=== PATIENT | male | born 1950 | race Caucasian/White ===

== ENCOUNTER 2023-10-25 09:26 | Emergency (ER) | payer OTHER, SELFPAY ==
[2023-10-25 09:53] VITALS: BP 124/81; PULSE 74; RESP 16; TEMP 36.6; O2SAT 95; BMI 35.3
--- NOTE | 2023-10-25 10:47 | XRR_ITS ---
PROCEDURE INFORMATION: Exam: XR Left Knee Exam date and time: 10/25/2023 11:54 AM Age: 73 years old Clinical indication: Injury or trauma; Fall; Sprain or strain; Ankle; Left TECHNIQUE: Imaging protocol: Radiologic exam of the left knee. Views: 3 views. COMPARISON: CR XR ankle LT min 3V* [id number] 10/25/2023 11:52 AM FINDINGS: Bones/joints: There is an intact knee prosthesis. Articulating surfaces appear to be in normal alignment. [place] bone is normal. Soft tissues: Normal. XR/XR knee LT 3V* [id number] IMPRESSION: No acute findings.
--- NOTE | 2023-10-25 10:47 | XRR_ITS ---
PROCEDURE INFORMATION: Exam: XR Left Ankle Exam date and time: 10/25/2023 11:52 AM Age: 73 years old Clinical indication: Injury or trauma; Fall; Sprain or strain; Lower leg; Left; Prior surgery; Surgery date: 6+ months; Surgery type: Lt knee; Additional info: Fall/pain TECHNIQUE: Imaging protocol: Radiologic exam of the left ankle. Views: 3 or more views. COMPARISON: No relevant prior studies available. FINDINGS: Bones/joints: No fracture or other acute abnormality. Mild tibiotalar degenerative changes are seen. Soft tissues: There is soft tissue swelling or edema. XR/XR ankle LT min 3V* [id number] IMPRESSION: No acute findings. Soft tissue swelling.
--- NOTE | 2023-10-25 11:54 | W.ED.LOWEXIN ---
HPI - Extremity Injury (Lower) General: Chief Complaint: Extremity Injury, Lower Stated Complaint: Fell, hurt ankle, knee Time Seen by Provider: 10/25/23 09:40 Source: patient Mode of arrival: wheelchair Limitations: no limitations History of Present Illness: Patient is a nice 73-year-old male who presents to ED today along with his for evaluation of a left lower extremity injury. Patient states approximately 2 to 3 days ago he was walking down an incline when he slipped and fell. He states his left leg got caught underneath him . He initially was having some left knee pain but states this has significantly improved. His main complaint is pain, swelling, and bruising around the left ankle. states he has been ambulating with crutches. MD complaint: ankle injury Onset (ago): day(s) Injury: Left: ankle Place: home Severity: moderate Relieving factors: immobilization Exacerbating factors: weight bearing, movement and palpation Context: fall Associated symptoms: Reports inability to bear weight Other symptoms: none Review of Systems Musc: Reports: joint pain (L ankle) and joint swelling (L ankle); Denies: neck pain, back pain, extremity pain, extremity swelling or joint redness Neuro: Reports: difficulty walking (secondary to L ankle pain); Denies: numbness in extremities, weakness in extremities or sensory changes Physical Exam Const: COMMON NORMALS: no acute distress, patient oriented x3, no limitations, alert and well nourished GENERAL APPEARANCE: cooperative Back/Pelvis: COMMON NORMALS: thoracic and lumbar spine normal to inspection and no thoracic nor lumbar tenderness Extremity: COMMON NORMALS: no calf tenderness GENERAL: Yes normal exam except as noted RIGHT LOWER EXTREMITY: Yes knee joint (anterior surgical scar) Right knee: Yes inspection (normal gross inspection), Yes palpation (minimal bony tenderness present), Yes ROM (normal ROM) and Yes neurovascular exam (normal) and Yes foot & digits (significant swelling throughout ankle/foot) Right ankle: Yes inspection (edema and ecchymosis), Yes palpation (max tenderness centered over L lateral malleolus) and Yes neurovascular exam (normal) Neuro: COMMON NORMALS: patient oriented x3, moves all extremities, no focal motor deficits and no sensory deficits noted SENSORIUM/ORIENTATION: Yes alert Course Vital Signs: Vital signs: Vital Signs Temperature 98 F 10/25/23 09:53 Pulse Rate 74 10/25/23 09:53 Respiratory Rate 16 10/25/23 09:53 Blood Pressure 124/81 10/25/23 09:53 Pulse Oximetry 95 10/25/23 09:53 Oxygen Delivery Me thod Room Air 10/25/23 09:53 MDM - Extremity Injury (Lower) Medical Decision Making Patient's XR showing a distal fibular fracture. Patient will be placed in a posterior short leg splint. He has crutches to being on weightbearing. Will place a case management referral for orthopedics. He declines prescription for pain medications. Lab Data Radiology Impressions Ankle X-Ray 10/25/23 10:47 IMPRESSION: No acute findings. Soft tissue swelling. Knee X-Ray 10/25/23 10:47 IMPRESSION: No acute findings. XR interpretation done by ED provider, pending radiology final review Discharge Plan Discharge Patient Disposition: Home Clinical Impression: Closed fracture of distal end of left fibula Qualifiers: Encounter type: initial encounter Fracture morphology: other fracture Qualified Code(s): S82.832A - Other fracture of upper and lower end of left fibula, initial encounter for closed fracture Condition: Stable Discharge Orders: Discharge ED (Routine); Ordered 10/25/23 Ordered By: Arline Mccarty Referrals: Haroon Aguiar MD [Family Provider] - Jen Elias MD [Primary Care Provider] - Patient Instructions: Ankle Fracture (DC) Activity Restrictions/Additional Instructions: As we discussed you need to stay in your splint and continue using your crutches until told otherwise by orthopedics. Case management should reach out to you later this week to help set you up with your follow-up appointment. Coding Level of Care Code ED Child Development Instructor for Jose Guallpa
--- NOTE | 2023-10-25 12:39 | PC.NURSE ---
PATIENT STATES HE HAS CRUTCHES IN THE CAR FOR USE.
--- NOTE | 2023-10-26 09:53 | DCPLANNER ---
Message sent to Ortho for follow up on a distal fib fx
== END 2023-10-25 12:39 | disposition home or self-care (01) ==
PROVIDERS: Emergency Provider Physician Assistant; Family Provider Family Medicine; PCP Family Medicine
DX: S82.832A Other fracture of upper and lower end of left fibula, initial encounter for closed fracture (principal); W01.0XXA Fall on same level from slipping, tripping and stumbling without subsequent striking against object, initial encounter
CPT/HCPCS: 73562; 73610; 99283

== ENCOUNTER 2025-10-06 15:17 | Emergency (ER) | payer OTHER, SELFPAY ==
--- OUTSIDE RECORDS SUMMARY | 2025-10-06 15:24 | XMS_ITS | Encounter Summary ---
Author Organization [facility] Address [address] [place] [address] Care Team Providers Care Inspector Eyeglass Frames Name Role Phone Jen Elias MD Primary Care Provider Encounter Details Date Type Department Care Team (Late st Contact Info) Description 04/18/2008 Outpatient Historical [employer] [facility] [address] [place] [address] Hermelindo Samayoa MD [address] [place] [address] [address] [place] [address] Social History Tobacco Use Types Packs/Day Years Used Date Smoking Tobacco: Never Assessed Sex and Gender Information Value Date Recorded Sex Assigned at Not on file 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 Gender Identity Not on file Sexual Orientation Not on file documented as of this encounter Plan of Treatment Not on file documented as of this encounter Procedures Procedure Name Priority Date/Time Associated Diagnosis Comments PATHOLOGY Routine 04/18/2008 8:50 AM CDT documented in this encounter Results * PATHOLOGY (04/18/2008 8:50 AM CDT) PATHOLOGY/CYT OLOGY REPORT [facility] Dept [address] [facility] [address] Patient: FAITH VALENCIA Accn No: [id number] Collected: 04/18/2008 8:50:00 AM DERMATOPATHOLOGY FINAL REPORT Diagnosis BASAL CELL CARCINOMA, SUPERFICIAL PATTERN (173.3) (LEFT NOSE) Luisito Olivas MD (Electronically signed by) Verified: 04/23/08 RP /WLS Clinical Information Lesion. Specimen Source LEFT NOSE Gross Description Received in formalin is a white fragment of skin measuring 0.4 x 0.4 x 0.1 cm with a brown possible ulcer measuring 0.2 x 0.1 cm. The specimen is bisected and submitted in cassette A1. *Gross examination performed at [facility], [address] [place] [address] DI RP /WLS Microscopic Description Sections show aggregates of atypical, peripherally palisaded basaloid cells near the junctional zone. There are infiltrates of lymphocytes present. The basal cell carcinoma is seen extending to the lateral biopsy margins. INTERFACE SYSTEM 04/18/2008 8:50 AM CDT Hermelindo Samayoa MD PATHOLOGY/CYTOLOGY ARABELLA PEREZ Final Result INTERFACE SYSTEM Refer to clinic/hospital department documented in this encounter Visit Diagnoses Not on filedocumented in this encounter Care Teams Inspector Eyeglass Frames Relationship Specialty Start Date End Date Jen Elias MD [address] [place] [address] PCP - General Family Practice 08/13/20 documented as of this encounter
--- OUTSIDE RECORDS SUMMARY | 2025-10-06 15:24 | XMS_ITS | Clinical Summary ---
Author Organization [facility] Address [address] [place] [address] Care Team Providers Care Engineering Technology Instructor Name Role Phone Jen Elias MD Primary Care Provider Allergies No known active allergies Medications atorvastatin (LIPITOR) 40 mg tablet Take 40 mg by mouth daily. 01/01/2020 Active cetirizine (ZyrTEC) 10 mg tablet Take 10 mg by mouth daily. Active polyethylene glycol 3350 (Miralax) 17 gram/dose Powder Take 1 SCOOP (17 Grams) by mouth daily. Dissolve in 8 ounces of fluid and drink entire liquid 510 Gram 08/14/2020 2:40 PM CDT 08/13/2020 Active walker Length of Need: 99 months Type of walker:walker with wheels 1 Each 08/13/2020 Active Active Problems Problem Noted Date Diagnosed Date Status post total left knee replacement 08/13/20 Primary osteoarthritis of left knee 07/28/2020 Obesity (BMI 30.0-34.9) 07/28/2020 Hyperlipidemia 09/19/2012 Tear of medial cartilage or meniscus of knee, cu rrent 11/16/2010 Resolved Problems Problem Noted Date Diagnosed Date Resolved Date Preoperative general physical examination 07/28/2020 08/12/2020 Rt knee pain 11/03/2010 12/24/2010 Immunizations Immunization Administration Dates Next Due Influenza Vaccine Split 3+ Yrs IM 10/07/2011 Family History Medical History Relation Name Comments Breast Cancer Mother Relation Name Status Comments Mother Social History Tobacco Use Types Packs/Day Years Used Date Smoking Tobacco: Never Smokeless Tobacco: Never Alcohol Use Standard Drinks/Week Comments No 0 (1 standard drink = 0.6 oz pur e alcohol) Sex and Gender Information Value Date Recorded Sex Assigned at Not on file 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 Gender Identity Not on file Sexual Orientation Not on file Occupation Industry Job Start Date Job End Date Not on file Not on file Not on file Not on file Last Filed Vital Signs Vital Sign Reading Time Taken Comments Blood Pressure 144/97 04/14/2021 10:29 AM CDT Pulse 74 04/14/2021 10:29 AM CDT Temperature 36.2 C (97.1 F) 08/14/2020 11:23 AM CDT Respiratory Rate 18 08/14/2020 11:23 AM CDT Oxygen Saturation 92% 08/14/2020 11:23 AM CDT Inhaled Oxygen Concentration - - Weight 122.9 kg (271 lb) 04/14/2021 10:29 AM CDT Height 188 cm (6' 2 ) 04/14/2021 10:29 AM CDT Body Mass Index 34.79 04/14/2021 10:29 AM CDT Plan of Treatment Health Maintenance Due Date Last Done Comments DTAP/TDAP/TD VACCINES (1 - Tdap) 1971 COLORECTAL SCREENING 1997 Colorectal Cancer Screening 1997 FIT-DNA Q 3 years 1997 FIT/FOBT Q 1 year 1997 Flex Sig/CT Colonography Q 5 years 1997 PNEUMOCOCCAL VACCINE 50+ YEARS (1 of 1 - PCV) 07/18/20 02 ZOSTER VACCINE (1 of 2) 2002 INFLUENZA VACCINE (#1) 2025 10/07/2011 RSV VACCINE (60+ or ) (1 - 1-dose 75+ series) 2027 Medical Devices Implanted Type Area Foot Cutter Device Identifier Shelf Expiration Date Model / Serial / Lot Tib Insert Rota Plat Cr Implanted:Qty: 1 on 08/13/2020 by Dave Lizarraga MD at [facility] Left: Knee 10/27/2023 DEPUY - 1516-30-910 / / [id number] Bsplt Tib Attune Sz10 Implanted:Qty: 1 on 08/13/2020 by Dave Lizarraga MD at [facility] Left: Knee [id number] 09/27/2029 [id number] / / [id number] Femoral Porocoat Cruciate Retaining Implanted:Qty: 1 on 08/13/2020 by Dave Lizarraga MD at [facility] Left: Knee 06/27/2028 [id number] / / [id number] Insurance [facility] MEDICARE PART A HOSPITAL ONLY RX [employer] Express Advance Directives For more information, please contact: [phone] * Full Code (Latest Code Status on File) Date Activated Date Inactivated Comments 08/13/2020 5:00 PM 08/14/2020 5:48 PM * Full Code Date Activated Date Inactivated Comments 08/13/2020 12:14 PM 08/13/2020 4:59 PM * Full Code Date Activated Date Inactivated Comments 08/13/2020 10:43 AM 08/13/2020 12:14 PM * Full Code Date Activated Date Inactivated Comments 11/25/2010 9:03 AM 11/26/2010 2:32 AM * Full Code Date Activated Date Inactivated Comments 11/25/2010 8:23 AM 11/25/2010 9:03 AM Care Teams Engineering Technology Instructor Relationship Specialty Start Date End Date Jen Elias MD [address] [place] [address] PCP - General Family Practice 08/13/20
--- OUTSIDE RECORDS SUMMARY | 2025-10-06 15:24 | XMS_ITS | Encounter Summary ---
Author Organization [facility] Address [address] [place] [address] Care Team Providers Care Flatbed Owner Operator Name Role Phone Jen Elias MD Primary Care Provider Encounter Details Date Type Department Care Team (Late st Contact Info) Description 05/03/2008 Outpatient Historical [facility] [address] [address] [facility] [address] [place] [address] Hermelindo Samayoa MD [address] [facility] [address] [place] [address] Malig Darrell Skin Face NEC Social History Tobacco Use Types Packs/Day Years Used Date Smoking Tobacco: Never Assessed Sex and Gender Information Value Date Recorded Sex Assigned at Not on file 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 Gender Identity Not on file Sexual Orientation Not on file documented as of this encounter Plan of Treatment Not on file documented as of this encounter Procedures Procedure Name Priority Date/Time Associated Diagnosis Comments PATHOLOGY Routine 05/08/2008 8:48 AM CDT documented in this encounter Results * PATHOLOGY (05/08/2008 8:48 AM CDT) PATHOLOGY/CYT OLOGY REPORT [facility]atomic Pathology Dept [address] [facility] [address] Patient: CON CUEVASB Accn No: [id number] Collected: 05/08/2008 8:48:00 AM SURGICAL PATHOLOGY FINAL REPORT Diagnosis A. Skin, left nose, excision - scar - actinic keratosis - margins free of carcinoma. Jen Chung M.D. ([facility] signed by) Verified: 05/09/08 LJW/CEP Clinical Information Biopsy proven basal cell carcinoma, suture at 12 o'clock. Specimen Source ASkin, LEFT NOSE Microscopic Description Microscopic examination was performed. Gross Description Part A. Received fresh from the OR labelled Binta, #1 lesion left nose is a circular fragment of oriented skin measuring 0.5 x 0.5 x 0.3 cm. A suture is present at one edge of the excision indicating the 12 o'clock position. With the epithelial surface up and the suture at 12 o'clock, the 12 to 3 to 6 o'clock side margin is marked with red ink. All other margins are marked with blue. The specimen then is trisected and submitted entirely for frozen section. Frozen section diagnosis: Skin, left nose, excision - margins free. Specimen submitted for permanent sections in A1. LJW/cep FS PC LJW/CEP INTERFACE SYSTEM 05/08/2008 8:48 AM CDT us Hermelindo Samayoa MD PATHOLOGY/CYTOLOGY ARABELLA PEREZ Final Result INTERFACE SYSTEM Refer to clinic/hospital department documented in this encounter Visit Diagnoses Diagnosis Other and unspecified malignant neoplasm of skin of other and unspecified parts of face documented in this encounter Care Teams Flatbed Owner Operator Relationship Specialty Start Date End Date Jen Elias MD [address] [place] [address] PCP - General Family Practice 08/13/20 documented as of this encounter
--- OUTSIDE RECORDS SUMMARY | 2025-10-06 15:24 | XMS_ITS | Clinical Summary ---
Author Organization [facility] Address [address] [place] [address] Care Team Providers Care Resistance Brazer Name Role Phone Jen Elias MD Primary Care Provider Allergies No known active allergies Medications cetirizine (ZyrTEC) 10 mg tablet Take 10 mg by mouth daily. 08/13/2020 Active walker Length of Need: 99 months Type of walker:walk er with wheels 1 Each 0 08/13/2020 Active atorvastatin (LIPITOR) 40 mg tablet Take 40 mg by mouth daily. 01/01/2020 Active Active Problems Problem Noted Date Diagnosed [...] Date Smoking Tobacco: Never Smokeless Tobacco: Never Tobacco Cessation:Counseling Given: Not Answered Alcohol Use Standard Drinks/Week Comments No 0 (1 standard drink = 0.6 oz pur e alcohol) Sex and Gender Information Value Date Recorded Sex Assigned at Not on file Legal Sex Male 6:53 AM ASSOCIATE PROFESSOR OF PHYSICS Gender Identity Not on file Sexual Orientation Not on file Last Filed Vital Signs Vital Sign Reading Time Taken Comments Blood Pressure 135/88 12/12/2023 10:38 AM ASSOCIATE PROFESSOR OF PHYSICS Pulse 76 12/12/2023 10:38 AM ASSOCIATE PROFESSOR OF PHYSICS Temperature 36.2 C (97.1 F) 08/14/2020 11:23 AM CDT Respiratory Rate 18 08/14/2020 11:2 3 AM CDT Oxygen Saturation - - Inhaled Oxygen Concentration - - Weight 125.6 kg (277 lb) 12/12/2023 10: 38 AM ASSOCIATE PROFESSOR OF PHYSICS LEFT FOOT INJURY Height 188 cm (6' 2 ) 12/12/2023 10:38 AM ASSOCIATE PROFESSOR OF PHYSICS Body Mass Index 35.56 12/12/2023 10:38 AM ASSOCIATE PROFESSOR OF PHYSICS Plan of Treatment Health Maintenance Due Date [...] series) 2027 Medical Devices Implanted Type Area Package Dyeing Machine Operator Device Identifier Shelf Expiration Date Model / Serial / Lot Bsplt Tib Attune Sz10 Implanted:Qty: 1 on 08/13/2020 by Dave Lizarraga MD Left: Knee [id number] 09/27/2029 [id number] / / [id number] Femoral Porocoat Cruciate Retaining Implanted:Qty: 1 on 08/13/2020 by Dave Lizarraga MD Left: Knee 06/27/2028 [employer]PU[employer] - 1504-01-109 / / [id number] Tib Insert Rota Plat Cr Implanted:Qty: 1 on 08/13/2020 by Dave Lizarraga MD Left: Knee 10/27/2023 DEPUY - 1516-30-910 / / [id number] Insurance [facility] CHO[facility] [id number] * Guarantor: VALENCIA CUEVAS Account Type Relation to Patient Date of Phone Billing Address Personal/Family [address] [place] [address] RX [employer] Care Teams Resistance Brazer Relationship Specialty Start Date End Date Jen Elias MD [address] [place] [address] PCP - General Family Practice 08/13/20
--- NOTE | 2025-10-06 15:30 | XRR_ITS ---
PROCEDURE INFORMATION: Exam: XR Right Wrist Exam date and time: 10/06/2025 3:29 PM Age: 75 years old Clinical indication: Pain; Wrist; Right; Additional info: RT wrist pain/swelling after impact injury TECHNIQUE: Imaging protocol: Radiologic exam of the right wrist. Views: 3 or more views. COMPARISON: No relevant prior studies available. FINDINGS: Bones/joints: Moderate to severe 1st carpometacarpal and STT joint osteoarthritis. Soft tissues: Normal. Vasculature: Scattered vascular calcifications. XR/XR wrist RT min 3V* [id number] IMPRESSION: 1. Negative for fracture or dislocation, consider further evaluation with a CT scan if concern for fracture remains given decreased normal density limiting evaluation. 2. Moderate to severe 1st carpometacarpal and STT joint osteoarthritis. 3. Scattered vascular calcifications.
--- NOTE | 2025-10-06 15:30 | W.ED.UPPEXIN ---
HPI - Extremity Injury (Upper) General: Chief Complaint: Extremity Injury, Upper Stated Complaint: rt hand inj Time Seen by Provider: 10/06/25 15:25 Source: patient Mode of arrival: ambulatory Limitations: no limitations History of Present Illness: Patient is a very nice 75-year-old male who presents to ED today along with his significant other for evaluation of a right wrist injury that he sustained yesterday. Patient states he was using a drill when it got away from me causing his right wrist to twist/turn. He has not noticed any swelling. Denies numbness, tingling, loss of sensation. He does feel like the wrist is improved when compared to yesterday. He states he just wants to make sure he did not crack anything . MD complaint: injury to: right and wrist Onset (ago): day(s) (yesterday) Place: home Severity: moderate Relieving factors: immobilization Exacerbating factors: movement of extremity Associated symptoms: Reports no associated symptoms Related Data Allergies Allergy/AdvReac Type Severity Reaction Status Date / Time No Known Allergies Allergy Verified 10/06/25 15:34 Review of Systems Musc: Reports: joint pain (R wrist); Denies: joint swelling, joint redness, joint warmth, joint stiffness or muscle weakness Neuro: Denies: numbness in extremities or sensory changes Physical Exam Const: COMMON NORMALS: no acute distress, average body habitus, no limitations, healthy appearing, alert and well nourished Extremity: COMMON NORMALS: capillary refill normal GENERAL: Yes normal exam except as noted RIGHT UPPER EXTREMITY: Yes wrist (TTP distal R wrist) Right wrist: Yes inspection (normal gross inspection), Yes ROM (fairly normal passive ROM but does cause discomfort) and Yes neurovascular exam (normal) Neuro: COMMON NORMALS: moves all extremities, no focal motor deficits and no sensory deficits noted SENSORIUM/ORIENTATION: Yes alert Course Vital Signs: Vital signs: Vital Signs Temperature 98.0 F 10/06/25 15:31 Pulse Rate 69 10/06/25 15:31 Respiratory Rate 18 10/06/25 15:31 Blood Pressure 158/88 10/06/25 15:31 Pulse Oximetry 95 10/06/25 15:31 Oxygen Delivery Me thod Room Air 10/06/25 15:31 MDM - Extremity Injury (Upper) Medical Decision Making Personal interpretation of right wrist XR is unremarkable. Patient will be placed in a velcro wrist splint. Discussed other conservative therapies including ice, heat, pvfg-frn-[id number] anti-inflammatory. He can follow-up with primary care in 1 to 2 weeks if symptoms are not improving. Differential Diagnosis Likely sprain and strain of wrist and fracture of wrist Medical Records I reviewed the patient's medical records. XR interpretation done by ED provider, pending radiology final review Discharge Plan Discharge Patient Disposition: Home Clinical Impression: Right wrist sprain Qualifiers: Encounter type: initial encounter Wrist sprain location: unspecified location Qualified Code(s): S63.501A - Unspecified sprain of right wrist, initial encounter Condition: Stable Discharge Orders: Discharge ED (Routine); Ordered 10/06/25 Ordered By: Arline Mccarty Referrals: Casandra Ji NP [Primary Care Provider, [facility]] Patient Instructions: Wrist Sprain (ED), Patient Portal & Mary Instructions Activity Restrictions/Additional Instructions: As we discussed, you may wear the velcro wrist splint to help with discomfort. You may begin taking an [id number] anti-inflammatory. We spoke about ice and heat as well. Please follow-up with primary care in 1 to 2 weeks if symptoms are not improving. Print Language: [place] Islander Coding Level of Care Code ED Green Prize Packer for Jose Guallpa
[2025-10-06 15:31] VITALS: BP 158/88; PULSE 69; RESP 18; TEMP 36.7; O2SAT 95
== END 2025-10-06 16:27 | disposition home or self-care (01) ==
PROVIDERS: Emergency Provider Physician Assistant; PCP Nurse Practitioner Family
DX: S63.501A Unspecified sprain of right wrist, initial encounter (principal); X58.XXXA Exposure to other specified factors, initial encounter
CPT/HCPCS: 73110; 99283